=== PATIENT | female | born 1975 ===

== ENCOUNTER 2021-04-12 06:04 | Day surgery (SDC) | payer OTHER ==
[~2021-04-12 06:04] MED LIST: BACLOFEN PO; CYMBALTA30 MG PO; CYMBALTA60 MG PO; ENALAPRIL PO; FORTAMET500 MG PO; GABAPENT PO; RESTORIL PO; VITAMIN D3 PO; XANAX1 MG PO; [UNRECOGNIZED DRUG - OTHER] PO
== END 2021-04-12 10:55 | disposition home or self-care (01) ==
LOC: CIR.AMB 06:04
PROVIDERS: ATTEND Orthopaedic Surgery Hand Surgery
DX: G56.01 Carpal tunnel syndrome, right upper limb (principal); Z20.822 Contact with and (suspected) exposure to COVID-19

== ENCOUNTER 2021-05-31 05:57 | Day surgery (SDC) | payer OTHER | END 2021-05-31 13:15 | disposition home or self-care (01) | LOC: CIR.AMB 05:57 | PROVIDERS: ATTEND Orthopaedic Surgery Hand Surgery | DX: G56.02 Carpal tunnel syndrome, left upper limb (principal); Z20.822 Contact with and (suspected) exposure to COVID-19 ==